=== PATIENT | female | born 1955 | race American Indian/Alaskan Native ===

== ENCOUNTER 2018-04-04 10:35 | Inpatient (IN) | payer OTHER ==
[2018-04-04] MEDS ORDERED: ASPIRIN PO ONE (11:05)
[2018-04-04 11:52] LABS: Basophils # (Auto) 0.1 K/mm3 (0.0-0.1); Basophils % (Auto) 0.8 % (0.0-1.8); Eosinophils # (Auto) 0.2 K/mm3 (0.0-0.4); Eosinophils % (Auto) 2.6 % (0.0-4.3); Hematocrit 42.2 % (30.3-42.9); Hemoglobin 13.6 gm/dl (10.1-14.3); Lymphocytes # (Auto) 2.5 K/mm3 (1.2-5.4); Mean Corpuscular HGB Conc 32 % (30-34); Mean Corpuscular Hemoglobin 29 pg (28-32); Mean Corpuscular Volume 90 fl (79-97); Monocytes # (Auto) 0.4 K/mm3 (0.0-0.8); Monocytes % (Auto) 4.9 % (0.0-7.3); Platelet Count 253 K/mm3 (140-440); Red Cell Distribution Width 13.3 % (13.2-15.2)
[2018-04-04 12:01] LABS: BUN/Creatinine Ratio 12; Blood Urea Nitrogen 6 mg/dL (7-17); Hemolysis Index 12
[2018-04-04 12:16] LABS: Calcium 12.2 mg/dL (8.4-10.2)
[2018-04-04] MEDS ORDERED: NITROSTAT SL ONE (14:00)
--- NOTE | 2018-04-04 14:04 | Emergency Department Report ---
ED Chest Pain HPI - General Chief Complaint: Chest Pain Stated Complaint: CHEST PAIN Time Seen by Provider: 04/04/18 13:53 Source: patient Mode of arrival: Wheelchair Limitations: No Limitations - History of Present Illness Initial Comments: Patient is 62 years old female with history of coronary artery disease, status post stent twice and high blood pressure. Patient presented with left-sided chest pain, pressure in nature radiating to her neck. Patient stated that her pain is better now. She denied any cough, shortness of breath or fever. MD Complaint: chest pain -: This morning Onset: during rest Pain Location: left chest Pain Radiation: neck Severity scale (0 -10): 5 Quality: heaviness, dull Consistency: constant - Related Data Allergies Allergy/AdvReac Type Severity Reaction Status Date / Time No Known Allergies Allergy Unverified 04/04/18 11:05 Heart Score - HEART Score History: Moderately suspicious EKG: Non-specific Age: 45-65 Risk factors: > 3 risk factors or hx of atherosclerotic disease Troponin: < normal limit HEART Score: 5 - Critical Actions Critical Actions: 4-6 pts:12-16.6% risk of adverse cardiac event. Should be admitted ED Review of Systems ROS: Stated complaint: CHEST PAIN Other details as noted in HPI Comment: All other systems reviewed and negative Constitutional: denies: chills, fever Respiratory: denies: cough, shortness of breath, SOB with exertion, SOB at rest , wheezing Cardiovascular: chest pain. denies: palpitations, dyspnea on exertion, orthopnea Gastrointestinal: denies: abdominal pain, nausea, vomiting, diarrhea, constipation, hematemesis, melena, hematochezia Genitourinary: denies: urgency, dysuria, frequency, hematuria Neurological: denies: headache, weakness, numbness ED Past Medical Hx - Past Medical History Previous Medical History?: Yes Hx Hypertension: Yes Additional medical history: Hx of bowel obstruction, cardiac stents. - Surgical History Past Surgical History?: Yes Additional Surgical History: Hx of bowel obs - Social History Smoking Status: Current Every Day Smoker Substance Use Type: None ED Physical Exam - General Limitations: No Limitations General appearance: alert, in no apparent distress - Head Head exam: Present: atraumatic, normocephalic, normal inspection - ENT ENT exam: Present: normal exam, normal orophraynx, mucous membranes moist - Neck Neck exam: Present: normal inspection, full ROM. Absent: tenderness, meningismus, lymphadenopathy, thyromegaly - Respiratory Respiratory exam: Present: normal lung sounds bilaterally. Absent: respiratory distress, wheezes, rales, rhonchi, stridor, chest wall tenderness, accessory muscle use, decreased breath sounds, prolonged expiratory - Cardiovascular Cardiovascular Exam: Present: regular rate, normal rhythm, normal heart sounds - GI/Abdominal GI/Abdominal exam: Present: soft, normal bowel sounds. Absent: distended, tenderness, guarding, rebound, rigid, organomegaly, mass, bruit, pulsatile mass , hernia - Extremities Exam Extremities exam: Present: normal inspection, full ROM, normal capillary refill - Back Exam Back exam: Present: normal inspection, full ROM. Absent: tenderness, CVA tenderness (R), CVA tenderness (L), muscle spasm, paraspinal tenderness, vertebral tenderness, rash noted - Neurological Exam Neurological exam: Present: alert, oriented X3, CN II-XII intact, normal gait, reflexes normal - Skin Skin exam: Present: warm, intact, normal color ED Course Vital Signs 04/04/18 04/04/18 04/04/18 10:36 15:06 15:07 Temperature 98.6 F Pulse Rate 69 62 62 Respiratory 16 15 Rate Blood Pressure 186/120 168/99 Blood Pressure 168/99 [Left] O2 Sat by Pulse 100 100 Oximetry 04/04/18 15:08 Temperature Pulse Rate 62 Respiratory Rate Blood Pressure Blood Pressure [Left] O2 Sat by Pulse Oximetry ED Medical Decision Making - Lab Data Result diagrams: 04/04/18 11:14 04/04/18 11:14 - EKG Data -: EKG Interpreted by Ia EKG shows normal: sinus rhythm Rate: normal - EKG Data Interpretation: no acute changes - Radiology Data Radiology results: image reviewed Chest x-ray is on unremarkable. - Medical Decision Making I discussed the patient is Dr. Robert, he agreed to admit to his service. Critical care attestation.: If time is entered above; I have spent that time in minutes in the direct care of this critically ill patient, excluding procedure time. ED Disposition Clinical Impression: Chest pain, Hypercalcemia Disposition: OP ADMIT IP TO THIS HOSP Is pt being admited?: Yes Condition: Stable Instructions: Chest Pain (ED) Referrals: RACHAEL DOLL MD [Primary Care Provider] - 3-5 Days
[2018-04-04] MEDS ORDERED: ASPIRIN ONE (14:38)
--- NOTE | 2018-04-04 15:12 | History and Physical Report ---
History of Present Illness Chief complaint: My chest hurts History of present illness: 62 YO Female with HTN, Malnutrition, CAD S/P Stent Placement, Nicotine Dependence presents to ED for evaluation. Pt states that she has experienced pain in her chest over the past 1-2 days with worsening symptoms over the past 8 hours. Pt states that pain is 5/10, constant, radiates to the left neck, crushing in nature, dull, not worsened with exertion, not relieved with rest. Pt denies fever, chills, palpitation, NVD, Diaphoresis, Shortness of Breath, Back pain, Unilateral leg swelling, calf pain, prolonged travel/immobility, individual/family history of DVT/PE, Productive cough, Hemoptysis, or recent ill contacts. Pt seen and evaluated in ED and found to have evidence of CHF, as well as ACS. Pt admitted to telemetry. Cardiology consulted in ED. Past History Past Medical History: CAD, hypertension Past Surgical History: Other (Stent Placement) Social history: , smoking Family history: hypertension Medications and Allergies Allergies Allergy/AdvReac Type Severity Reaction Status Date / Time No Known Allergies Allergy Unverified 04/04/18 11:05 Home Medications Medication Instructions Recorded Confirmed Last Taken Type No Known Home Medications [No 04/04/18 04/04/18 Unknown History Reported Home Medications] Review of Systems Constitutional: no weight loss, no weight gain, no fever, no chills Breasts: no change in shape, no swelling, no mass Cardiovascular: chest pain, no orthopnea, no palpitations, no syncope, no shortness of breath, no dyspnea on exertion, no paroxysmal nocturnal dyspnea Respiratory: no cough with sputum, no excessive sputum, no hemoptysis Gastrointestinal: no nausea, no vomiting, no diarrhea, no constipation Genitourinary Female: no pelvic pain, no flank pain, no menorrhagia, no dysuria , no urinary frequency, no urgency Rectal: no pain, no incontinence, no bleeding Musculoskeletal: no neck pain, no shooting arm pain, no arm numbness/tingling, no low back pain, no shooting leg pain, no leg numbness/tingling Integumentary: no rash, no pruritis, no redness, no sores, no wounds Neurological: no transient paralysis, no paralysis, no weakness, no parathesias , no numbness, no tingling Psychiatric: no memory loss, no change in sleep habits, no sleep disturbances, no insomnia, no hypersomnia Endocrine: no cold intolerance, no heat intolerance, no polyphagia, no excessive thirst, no polydipsia, no polyuria, no nocturia Hematologic/Lymphatic: no easy bruising, no easy bleeding, no lymphadenopathy, no lymphedema Allergic/Immunologic: no urticaria, no allergic rhinitis, no wheezing, no persistent infections Exam - Constitutional Vitals: Temp Pulse Resp BP Pulse Ox 98.6 F 62 15 168/99 100 04/04/18 10:36 04/04/18 15:08 04/04/18 15:07 04/04/18 15:07 04/04/18 15:07 General appearance: Present: mild distress, cachectic - EENT Eyes: Present: PERRL ENT: hearing intact, clear oral mucosa - Neck Neck: Present: supple, normal ROM - Respiratory Respiratory effort: normal Respiratory: bilateral: CTA - Cardiovascular Heart Sounds: Present: S1 & S2. Absent: rub, click - Extremities Extremities: pulses symmetrical, No edema Peripheral Pulses: within normal limits - Abdominal General gastrointestinal: Present: soft, non-tender, non-distended, normal bowel sounds Female genitourinary: Present: normal - Integumentary Integumentary: Present: clear, warm, dry - Musculoskeletal Musculoskeletal: gait normal, strength equal bilaterally - Psychiatric Psychiatric: appropriate mood/affect, intact judgment & insight - Neurologic Neurologic: CNII-XII intact, moves all extremities Results - Labs CBC & Chem 7: 04/04/18 17:22 04/04/18 17:39 Labs: Abnormal lab results 04/04/18 Range/Units 11:14 BUN 6 L (7-17) mg/dL Creatinine 0.5 L (0.7-1.2) mg/dL Calcium 12.2 H* (8.4-10.2) mg/dL Assessment and Plan - Patient Problems (1) ACS (acute coronary syndrome) Current Visit: Yes Status: Acute Plan to address problem: Admit to telemetry: Serial cardiac enzymes, ekg, echo, stress test, cardiology consulted, morphine, nitro, aspirin, (2) CHF (congestive heart failure) Current Visit: Yes Status: Acute Qualifiers: Heart failure type: diastolic Plan to address problem: Admit to telemetry, Strict I/O, Daily weight, afterload reduction, Echo, Cardiology consulted, supplemental oxygen, monitor uop q shift to assess fluid balance (3) HTN (hypertension) Current Visit: Yes Status: Acute Qualifiers: Hypertension type: essential hypertension Qualified Code(s): I10 - Essential (primary) hypertension Plan to address problem: monitor bp q shift, resume prehospital therapy (4) Nicotine dependence Current Visit: Yes Status: Acute Qualifiers: Nicotine product type: cigarettes Substance use status: in withdrawal Qualified Code(s): F17.213 - Nicotine dependence, cigarettes, with withdrawal Plan to address problem: supportive care, smoking cessation counseling, (5) DVT prophylaxis Current Visit: Yes Status: Acute Plan to address problem: scd to ble while in bed.
[2018-04-04] MEDS ORDERED: SODIUM CHLORIDE FLUSH SYRINGE 10 ML IV PRN ×2 (15:15)
[2018-04-04] MEDS ORDERED: TYLENOL PO PRN (15:15)
[2018-04-04] MEDS ORDERED: PROVENTIL IH PRN (15:15)
[2018-04-04] MEDS ORDERED: BABY ASPIRIN PO STA (15:15)
[2018-04-04] MEDS ORDERED: ZOFRAN IV PRN (15:15)
[2018-04-04] MEDS ORDERED: APRESOLINE IV PRN (15:20)
[2018-04-04] MEDS ORDERED: NACL 0.9% 1000 ML 1,000 ML IV ONE (15:25)
[2018-04-04 18:05] LABS: Hematocrit 41.3 % (30.3-42.9); Hemoglobin 13.1 gm/dl (10.1-14.3); Mean Corpuscular HGB Conc 32 % (30-34); Mean Corpuscular Hemoglobin 29 pg (28-32); Mean Corpuscular Volume 91 fl (79-97); Platelet Count 259 K/mm3 (140-440); Red Blood Count 4.55 M/mm3 (3.65-5.03); Red Cell Distribution Width 13.3 % (13.2-15.2)
[2018-04-04 18:17] LABS: BUN/Creatinine Ratio 10; Blood Urea Nitrogen 6 mg/dL (7-17); Hemolysis Index 1
[2018-04-04 19:07] LABS: Total Cells Counted 100
[2018-04-04 19:08] LABS: Ovalocytes Few
[2018-04-05] MEDS: SODIUM CHLORIDE FLUSH SYRINGE 10 ML IV SCH ×3 (07:19→21:57)
[2018-04-05] MEDS ORDERED: LEXISCAN IV ONE ×2 (08:16→08:37)
--- NOTE | 2018-04-05 12:10 | Progress Note ---
Assessment and Plan Assessment and plan: Patient is a 62 YO Female with HTN, Malnutrition, CAD S/P Stent Placement, Nicotine Dependence presents to ED for evaluation. Pt states that she has experienced pain in her chest over the past 1-2 days with worsening symptoms over the past 8 hours. Pt states that pain is 5/10, constant, radiates to the left neck, crushing in nature, dull, not worsened with exertion, not relieved with rest. Pt denies fever, chills, palpitation, NVD, Diaphoresis, Shortness of Breath, Back pain, Unilateral leg swelling, calf pain, prolonged travel/ immobility, individual/family history of DVT/PE, Productive cough, Hemoptysis, or recent ill contacts. Patient reports prior evaluation by Primary care doctor and noted to have a Calcium of 12. also TSH Was checked and was 0.5. she was advised to see psychiatry that this may all be due to anxiety. 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 Recheck calcium level in am Reinforce tobacco cessation counselling check PTH, FREE T4, TSH Pain control dvt/gi prophy History Interval history: Patient seen and examined in no acute distress. reports mirage of symptoms from palpitations, to head pain Hospitalist Physical - Physical exam Narrative exam: VITAL SIGNS: Reviewed. GENERAL: The patient appeared cachectic. Vital signs as documented. HEAD: No signs of head trauma. EYES: Pupils are equal. Extraocular motions intact. EARS: Hearing grossly intact. MOUTH: Oropharynx is normal. NECK: No adenopathy, no JVD. CHEST: Chest with clear breath sounds bilaterally. No wheezes, rales, or rhonchi. CARDIAC: Regular rate and rhythm. S1 and S2, without murmurs, gallops, or rubs. VASCULAR: No Edema. Peripheral pulses normal and equal in all extremities. ABDOMEN: Soft, without detectable tenderness. No sign of distention. No rebound or guarding, and no masses palpated. Bowel Sounds normal. MUSCULOSKELETAL: Good range of motion of all major joints. Extremities without clubbing, cyanosis or edema. NEUROLOGIC EXAM: Alert and oriented x 3. No focal sensory or strength deficits. Speech normal. Follows commands. PSYCHIATRIC: Mood normal. SKIN: No rash or lesions. - Constitutional Vitals: Temp Pulse Resp BP Pulse Ox 98.7 F 72 18 149/85 100 04/05/18 07:46 04/05/18 10:39 04/05/18 07:46 04/05/18 10:39 04/05/18 07:46 General appearance: Present: mild distress, cachectic Results - Labs CBC & Chem 7: 04/04/18 17:22 04/06/18 07:20 Labs: Laboratory Last Values WBC 8.1 K/mm3 (4.5-11.0) 04/04/18 17:22 RBC 4.55 M/mm3 (3.65-5.03) 04/04/18 17:22 Hgb 13.1 gm/dl (10.1-14.3) 04/04/18 17:22 Hct 41.3 % (30.3-42.9) 04/04/18 17:22 MCV 91 fl (79-97) 04/04/18 17:22 MCH 29 pg (28-32) 04/04/18 17:22 MCHC 32 % (30-34) 04/04/18 17:22 RDW 13.3 % (13.2-15.2) 04/04/18 17:22 Plt Count 259 K/mm3 (140-440) 04/04/18 17:22 Lymph % (Auto) 33.0 % (13.4-35.0) 04/04/18 11:14 Frontier % (Auto) 4.9 % (0.0-7.3) 04/04/18 11:14 Eos % (Auto) 2.6 % (0.0-4.3) 04/04/18 11:14 Baso % (Auto) 0.8 % (0.0-1.8) 04/04/18 11:14 Lymph # 2.5 K/mm3 (1.2-5.4) 04/04/18 11:14 Frontier # 0.4 K/mm3 (0.0-0.8) 04/04/18 11:14 Eos # 0.2 K/mm3 (0.0-0.4) 04/04/18 11:14 Baso # 0.1 K/mm3 (0.0-0.1) 04/04/18 11:14 Add Manual Diff Complete 04/04/18 17:22 Total Counted 100 04/04/18 17:22 Seg Neutrophils % 58.7 % (40.0-70.0) 04/04/18 11:14 Seg Neuts % (Manual) 48.0 % (40.0-70.0) 04/04/18 17:22 Band Neutrophils % 0 % 04/04/18 17:22 Lymphocytes % (Manual) 40.0 % (13.4-35.0) H 04/04/18 17:22 Reactive Lymphs % (Man) 0 % 04/04/18 17:22 Monocytes % (Manual) 8.0 % (0.0-7.3) H 04/04/18 17:22 Eosinophils % (Manual) 3.0 % (0.0-4.3) 04/04/18 17:22 Basophils % (Manual) 1.0 % (0.0-1.8) 04/04/18 17:22 Metamyelocytes % 0 % 04/04/18 17:22 Myelocytes % 0 % 04/04/18 17:22 Promyelocytes % 0 % 04/04/18 17:22 Blast Cells % 0 % 04/04/18 17:22 Nucleated RBC % Not Reportable 04/04/18 17:22 Seg Neutrophils # 4.4 K/mm3 (1.8-7.7) 04/04/18 11:14 Seg Neutrophils # Man 3.9 K/mm3 (1.8-7.7) 04/04/18 17:22 Band Neutrophils # 0.0 K/mm3 04/04/18 17:22 Lymphocytes # (Manual) 3.2 K/mm3 (1.2-5.4) 04/04/18 17:22 Abs React Lymphs (Man) 0.0 K/mm3 04/04/18 17:22 Monocytes # (Manual) 0.6 K/mm3 (0.0-0.8) 04/04/18 17:22 Eosinophils # (Manual) 0.2 K/mm3 (0.0-0.4) 04/04/18 17:22 Basophils # (Manual) 0.1 K/mm3 (0.0-0.1) 04/04/18 17:22 Metamyelocytes # 0.0 K/mm3 04/04/18 17:22 Myelocytes # 0.0 K/mm3 04/04/18 17:22 Promyelocytes # 0.0 K/mm3 04/04/18 17:22 Blast Cells # 0.0 K/mm3 04/04/18 17:22 WBC Morphology Not Reportable 04/04/18 17:22 Hypersegmented Neuts Not Reportable 04/04/18 17:22 Hyposegmented Neuts Not Reportable 04/04/18 17:22 Hypogranular Neuts Not Reportable 04/04/18 17:22 Smudge Cells Not Reportable 04/04/18 17:22 Toxic Granulation Not Reportable 04/04/18 17:22 Toxic Vacuolation Not Reportable 04/04/18 17:22 Dohle Bodies Not Reportable 04/04/18 17:22 Pelger-Huet Anomaly Not Reportable 04/04/18 17:22 U[place]ano Rods Not Reportable 04/04/18 17:22 Platelet Estimate Appears normal 04/04/18 17:22 Clumped Platelets Not Reportable 04/04/18 17:22 Plt Clumps, EDTA Not Reportable 04/04/18 17:22 Large Platelets Not Reportable 04/04/18 17:22 Giant Platelets Not Reportable 04/04/18 17:22 Platelet Satelliting Not Reportable 04/04/18 17:22 Plt Morphology Comment Not Reportable 04/04/18 17:22 RBC Morphology Not Reportable 04/04/18 17:22 Dimorphic RBCs Not Reportable 04/04/18 17:22 Polychromasia Not Reportable 04/04/18 17:22 Hypochromasia Not Reportable 04/04/18 17:22 Poikilocytosis Not Reportable 04/04/18 17:22 Anisocytosis Not Reportable 04/04/18 17:22 Microcytosis Not Reportable 04/04/18 17:22 Macrocytosis Not Reportable 04/04/18 17:22 Spherocytes Not Reportable 04/04/18 17:22 Pappenheimer Bodies Not Reportable 04/04/18 17:22 Sickle Cells Not Reportable 04/04/18 17:22 Target Cells Not Reportable 04/04/18 17:22 Tear Drop Cells Not Reportable 04/04/18 17:22 Ovalocytes Few 04/04/18 17:22 Helmet Cells Not Reportable 04/04/18 17:22 [place] Bodies Not Reportable 04/04/18 17:22 [place] Rings Not Reportable 04/04/18 17:22 Noe Cells Not Reportable 04/04/18 17:22 Bite Cells Not Reportable 04/04/18 17:22 Crenated Cell Not Reportable 04/04/18 17:22 Elliptocytes Not Reportable 04/04/18 17:22 Acanthocytes (Spur) Not Reportable 04/04/18 17:22 Rouleaux Not Reportable 04/04/18 17:22 Hemoglobin C Crystals Not Reportable 04/04/18 17:22 Schistocytes Not Reportable 04/04/18 17:22 Malaria parasites Not Reportable 04/04/18 17:22 Davi Bodies Not Reportable 04/04/18 17:22 Hem Pathologist Commnt No 04/04/18 17:22 D-Dimer 172.12 ng/mlDDU (0-234) 04/04/18 17:38 Sodium 144 mmol/L (137-145) 04/04/18 17:39 Potassium 4.4 mmol/L (3.6-5.0) 04/04/18 17:39 Chloride 102.9 mmol/L (98-107) 04/04/18 17:39 Carbon Dioxide 30 mmol/L (22-30) 04/04/18 17:39 Anion Gap 16 mmol/L 04/04/18 17:39 BUN 6 mg/dL (7-17) L 04/04/18 17:39 Creatinine 0.6 mg/dL (0.7-1.2) L 04/04/18 17:39 Estimated GFR > 60 ml/min 04/04/18 17:39 BUN/Creatinine Ratio 10 % 04/04/18 17:39 Glucose 85 mg/dL (65-100) 04/04/18 17:39 Calcium 12.0 mg/dL (8.4-10.2) H 04/04/18 17:39 Troponin T < 0.010 ng/mL (0.00-0.029) 04/04/18 20:00 NT-Pro-B Natriuret Pep 146.1 pg/mL (0-900) 04/04/18 17:39 - Imaging and Cardiology Chest x-ray: image reviewed (clear)
[2018-04-05] MEDS: NACL 0.9% 1000 ML 1,000 ML IV SCH ×2 (14:35→21:56)
--- NOTE | 2018-04-05 18:04 | Consultation ---
History of Present Illness Consult date: 04/05/18 Consult reason: chest pain History of present illness: Patient's this 62-year-old woman was admitted with atypical chest pain, ECG and cardiac enzymes were benign, she underwent a Persantine thallium stress test which was normal. Echocardiogram was normal left ventricle systolic function, ejection fraction 60-65%. She gives a history of coronary artery disease with remote coronary stenting, but unclear about details of her prior cardiac workup. She at this time does not follow-up regularly with a adobe developer. She also appears not to be on routine cardiac anti-ischemic medications. Past History Past Medical History: CAD, hypertension Past Surgical History: Other (Stent Placement) Social history: , smoking Family history: hypertension Medications and Allergies Allergies Allergy/AdvReac Type Severity Reaction Status Date / Time No Known Allergies Allergy Unverified 04/04/18 11:05 Home Medications Medication Instructions Recorded Confirmed Last Taken Type No Known Home Medications [No 04/04/18 04/04/18 Unknown History Reported Home Medications] Active Meds: Active Medications Acetaminophen (Tylenol) 650 mg PO Q4H PRN PRN Reason: Pain MILD(1-3)/Fever >100.5/CARR Last Admin: 04/04/18 21:40 Dose: 650 mg Albuterol (Proventil) 2.5 mg IH Q4HRT PRN PRN Reason: Shortness Of Breath Hydralazine HCl (Apresoline) 10 mg IV Q4H PRN PRN Reason: Hypertension, systolic >160 Sodium Chloride (Nacl 0.9% 1000 Ml) 1,000 mls @ 150 mls/hr IV DIRECT [facility] Last Admin: 04/05/18 14:35 Dose: 150 mls/hr Ondansetron HCl (Zofran) 4 mg IV Q8H PRN PRN Reason: Nausea And Vomiting Sodium Chloride (Sodium Chloride Flush Syringe 10 Ml) 10 ml IV BID [facility] Last Admin: 04/05/18 15:32 Dose: Not Given Sodium Chloride (Sodium Chloride Flush Syringe 10 Ml) 10 ml IV PRN PRN PRN Reason: LINE FLUSH Sodium Chloride (Sodium Chloride Flush Syringe 10 Ml) 10 ml IV PRN PRN PRN Reason: LINE FLUSH Review of Systems Cardiovascular: chest pain, no orthopnea, no palpitations, no rapid/irregular heart beat, no edema, no syncope, no lightheadedness, no shortness of breath Physical Examination Vital Signs Temp Pulse Resp BP Pulse Ox 98.6 F 69 16 186/120 100 04/04/18 10:36 04/04/18 10:36 04/04/18 10:36 04/04/18 10:36 04/04/18 10:36 General appearance: no acute distress HEENT: Positive: PERRL Neck: Positive: neck supple Cardiac: Positive: Reg Rate and Rhythm Lungs: Positive: Decreased Breath Sounds Neuro: Positive: Grossly Intact Abdomen: Positive: Soft Female genitourinary: deferred Skin: Positive: Clear Extremities: Absent: edema Results 04/04/18 17:22 04/06/18 07:20 CBC 04/04/18 Range/Units 17:22 WBC 8.1 (4.5-11.0) K/mm3 RBC 4.55 (3.65-5.03) M/mm3 Hgb 13.1 (10.1-14.3) gm/dl Hct 41.3 (30.3-42.9) % Plt Count 259 (140-440) K/mm3 Comprehensive Metabolic Panel 04/04/18 Range/Units 17:39 Sodium 144 (137-145) mmol/L Potassium 4.4 (3.6-5.0) mmol/L Chloride 102.9 (98-107) mmol/L Carbon Dioxide 30 (22-30) mmol/L BUN 6 L (7-17) mg/dL Creatinine 0.6 L (0.7-1.2) mg/dL Glucose 85 (65-100) mg/dL Calcium 12.0 H (8.4-10.2) mg/dL EKG interpretations - Telemetry EKG Rhythm: Sinus Rhythm Assessment and Plan - Patient Problems (1) Chest pain Status: Acute Plan to address problem: Patient was admitted with atypical chest pain, cardiac workup is negative with negative EKG, negative cardiac enzymes, negative thallium stress test and echocardiogram with ejection fraction 60-65%. She has a history of coronary artery disease and we recommend obtaining her old records for review. Maintain routine outpatient cardiology follow-up, with resumption of optimal coronary artery disease and cardiac ischemic medical therapy.
--- NOTE | 2018-04-06 03:10 | Treadmill Report ---
THALLIUM STRESS TEST REPORT LEFT VENTRICLE: Left ventricular chamber size is within normal spread. Perfusion study demonstrates homogeneous uptake of the tracer in all segments, no significant perfusion defects identified. Gated analysis demonstrates normal left ventricular systolic function, ejection fraction greater than 70%. CONCLUSION: Normal myocardial perfusion study. JOB# [id number] CA/NTS
[2018-04-06] MEDS: NACL 0.9% 1000 ML 1,000 ML IV SCH (04:35)
[2018-04-06 05:24] VITALS: BP 148/89
[2018-04-06 08:07] LABS: BUN/Creatinine Ratio 10; Blood Urea Nitrogen 5 mg/dL (7-17); Calcium 11.5 mg/dL (8.4-10.2); Hemolysis Index 15
[2018-04-06] MEDS: SODIUM CHLORIDE FLUSH SYRINGE 10 ML IV SCH (10:08)
--- NOTE | 2018-04-06 11:34 | Discharge Summary ---
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 Pt states that she has experienced pain in her chest over the past 1-2 days with worsening symptoms over the past 8 hours. Pt states that pain is 5/10, constant, radiates to the left neck, crushing in nature, dull, not worsened with exertion, not relieved with rest. Pt denies fever, chills, palpitation, NVD, Diaphoresis, Shortness of Breath, Back pain, Unilateral leg swelling, calf pain, prolonged travel/ immobility, individual/family history of DVT/PE, Productive cough, Hemoptysis, or recent ill contacts. Patient reports prior evaluation by Primary care doctor and noted to have a Calcium of 12. also TSH Was checked and was 0.5. she was advised to see psychiatry that this may all be due to anxiety. 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
--- NOTE | 2018-04-06 12:27 | Progress Note ---
Assessment and Plan Chest pain, atypical normal MPI EF 60-65% by echo No further cardiac workup indicated. Conservative cardiac management. Subjective Date of service: 04/06/18 Interval history: There are no cardiac complaints. Objective Vital Signs Temp Pulse Pulse Resp BP BP Pulse Ox 04/06/18 10:00 18 04/06/18 04:43 98.4 F 63 18 148/89 100 04/06/18 03:33 55 L 04/05/18 23:25 98.3 F 66 18 145/82 100 04/05/18 22:27 62 04/05/18 21:11 72 18 99 04/05/18 20:05 100 04/05/18 19:32 98.0 F 64 18 154/93 100 04/05/18 19:29 66 154/93 100 04/05/18 17:00 98.3 F 69 18 158/101 98 - Physical Examination General: No Apparent Distress Cardiac: Positive: Reg Rate and Rhythm - Labs and Meds Comprehensive Metabolic Panel 04/06/18 Range/Units 07:20 Sodium 145 (137-145) mmol/L Potassium 4.2 (3.6-5.0) mmol/L Chloride 107.8 H (98-107) mmol/L Carbon Dioxide 23 D (22-30) mmol/L BUN 5 L (7-17) mg/dL Creatinine 0.5 L (0.7-1.2) mg/dL Glucose 88 (65-100) mg/dL Calcium 11.5 H (8.4-10.2) mg/dL
--- NOTE | 2018-04-06 14:26 | XRay Report ---
FINAL REPORT EXAM: XR CHEST 1V AP HISTORY: chest pain TECHNIQUE: Frontal portable examination of the chest PRIORS: None FINDINGS: Thoracic spine curvature with mid right apex. Atherosclerotic change is present in the thoracic aorta. There is degenerative spondylosis of the thoracic spine. There is no visible pulmonary consolidation, pleural effusion, or pneumothorax. Cardiac silhouette size is normal without vascular congestion. Large lung volumes suggest hyperinflation. This may reflect pulmonary emphysema. No definite acute cardiopulmonary disease. Nonspecific 6 mm smoothly marginated nodular opacity is noted in the left upper lobe region coinciding with posterior left 4th rib. This may be a bone island. Similar density noted in proximal humerus region may also be a bone island. IMPRESSION: Posterior left 4th rib bone island versus left upper lobe pulmonary nodule. Recommend followup chest CT to further characterize
--- NOTE | 2018-04-06 14:30 | Cat Scan Report ---
FINAL REPORT PROCEDURE: CT HEAD/BRAIN WO CON TECHNIQUE: Computerized tomography of the head was performed without contrast material. HISTORY: intermittent amensia, hypercalcemia COMPARISON: No prior studies are available for comparison. FINDINGS: No intracranial mass, hemorrhage, acute territorial infarction, or hydrocephalus. The intracranial arteries are symmetric in density. Calvarium is intact. The visualized paranasal sinuses and mastoids are aerated. IMPRESSION: No CT evidence of acute intracranial abnormality
== END 2018-04-06 12:45 | disposition home or self-care (01) | DRG 304 ==
LOC: ED 10:35 → 4A 15:15
PROVIDERS: ADMIT Internal Medicine; ATTEND Internal Medicine
DX: I16.0 Hypertensive urgency (principal); E43 Unspecified severe protein-calorie malnutrition; I24.9 Acute ischemic heart disease, unspecified; R64 Cachexia; Z68.1 Body mass index [BMI] 19.9 or less, adult; F17.213 Nicotine dependence, cigarettes, with withdrawal; I50.30 Unspecified diastolic (congestive) heart failure; I25.10 Atherosclerotic heart disease of native coronary artery without angina pectoris; I11.0 Hypertensive heart disease with heart failure; R41.3 Other amnesia; E05.90 Thyrotoxicosis, unspecified without thyrotoxic crisis or storm; R07.89 Other chest pain; E83.52 Hypercalcemia; Z82.49 Family history of ischemic heart disease and other diseases of the circulatory system; Z95.5 Presence of coronary angioplasty implant and graft
CPT/HCPCS: 36415; 70450; 71045; 78452; 80048; 82330; 83880; 83970; 84484; 85007; 85025; 85379; 93005; 93010; 93017; 93306; 99285; 99406; A9502; J2785; J7030

== ENCOUNTER 2019-12-10 09:53 | Outpatient (CLI) | payer BC ==
[2019-12-10] MEDS ORDERED: LIDOCAINE (4%) 40 MG/ML TOPICAL SOLN 50 ML BOTTLE TP ONE (10:12)
[2019-12-10] MEDS ORDERED: LIDOCAINE 1%/EPINEPHRINE 1:100,000 VIAL (20 ML) INFILTRATI ONE (11:30)
[2019-12-10] MEDS ORDERED: LIDOCAINE (1%) 10 MG/1 ML VIAL 20 ML MDV INFILTRATI ONE (11:30)
== END 2019-12-10 09:54 | disposition home or self-care (01) ==
LOC: WOUND 09:53
PROVIDERS: ATTEND Surgery
DX: L02.212 Cutaneous abscess of back [any part, except buttock and flank] (principal); I10 Essential (primary) hypertension; I25.10 Atherosclerotic heart disease of native coronary artery without angina pectoris; F17.200 Nicotine dependence, unspecified, uncomplicated; Z90.710 Acquired absence of both cervix and uterus
CPT/HCPCS: 10060; 87116; G0463; 99204; 99214

== ENCOUNTER 2019-12-28 11:08 | Day surgery (SDC) | payer BC ==
[~2019-12-28 11:08] MED LIST: ceFAZolin/Water 2 GM/20 ML 2 GM/20 ML SYRINGE IV SCH
[2019-12-28] MEDS ORDERED: fentaNYL 100 MCG/2 ML INJ IV PRN (12:18)
--- NOTE | 2019-12-28 12:22 | Anesthesia Day of Surgery ---
Anesthesia Day of Surgery - Day of Surgery Patient Examined: Yes Patient H&P Reviewed: Yes Patient is NPO: Yes Beta Blockers: Yes
--- NOTE | 2019-12-28 12:22 | Anesthesia Consultation ---
Anesthesia Consult and Med Hx Date of service: 12/28/19 - Airway Anesthetic Teeth Evaluation: Dentures ROM Head & Neck: Adequate Mental/Hyoid Distance: Adequate Mallampati Class: Class III Intubation Access Assessment: Possibly Difficult - Pulmonary Exam CTA: Yes - Cardiac Exam Cardiac Exam: RRR - Pre-Operative Health Status ASA Pre-Surgery Classification: ASA3 Proposed Anesthetic Plan: MAC - Pulmonary Hx Smoking: Yes (2-3 cigs/day) Hx Respiratory Symptoms: No Hx Sleep Apnea: No (RANCHO PRE SCREEN HIGH RISK.) - Cardiovascular System Hx Hypertension: Yes (took losartan and metoprolol this morning) Hx Coronary Artery Disease: Yes ([facility] 11/2019: moderate instent stenosis; med management) Hx Percutaneous Transluminal Coronary Angioplasty (PTCA): Yes (x2 2004) Hx Cardia Arrhythmia: No - Central Nervous System CVA: No - Gastrointestinal Hx Gastroesophageal Reflux Disease: No - Endocrine Hx Renal Disease: No Hx Liver Disease: No Hx Insulin Dependent Diabetes: No Hx Non-Insulin Dependent Diabetes: No Hx Thyroid Disease: No - Other Systems Hx Substance Use: Yes (THC) Hx Obesity: No - Additional Comments Anesthesia Medical History Comments: No hx anesthetic complications. Admitted in 11/2019 for chest pain. Neg stress test and LHC showing moderate re-stenosis but no intervention.
[2019-12-28] MEDS ORDERED: LACTATED RINGERS 1,000 ML IV SCH (13:00)
[2019-12-28] MEDS ORDERED: MIDAZOLAM 2 MG/2 ML INJ IV NR (13:00)
[2019-12-28] MEDS ORDERED: LIDOCAINE (1%) 10 MG/1 ML VIAL 20 ML MDV ONE (13:24)
[2019-12-28] MEDS ORDERED: BUPIVACAINE/PF (0.25%) 2.5 MG/ML 30 ML VIAL INFILTRATI ONE ×2 (13:24→14:07)
[2019-12-28] MEDS ORDERED: propofoL 200 MG/20 ML VIAL IV ONE (13:28)
[2019-12-28] MEDS ORDERED: fentaNYL 100 MCG/2 ML INJ ONE (13:28)
[2019-12-28] MEDS ORDERED: KETAMINE/STERILE WATER 50 MG/ML SYRINGE ONE (13:50)
[2019-12-28] MEDS ORDERED: MIDAZOLAM 2 MG/2 ML INJ ONE (13:50)
[2019-12-28] MEDS ORDERED: LIDOCAINE (1%) 10 MG/1 ML VIAL 20 ML MDV INFILTRATI ONE (14:07)
[2019-12-28] MEDS ORDERED: SODIUM CHLORIDE 0.9% IRR 1,500 ML BOTTLE IR ONE (14:08)
[2019-12-28] MEDS ORDERED: BACITRACIN ZINC OINT 28.4 GM TP ONE ×2 (14:18→14:22)
--- NOTE | 2019-12-28 14:37 | Short Stay Summary ---
Short Stay Documentation Date of service: 12/28/19 - History Principal diagnosis: cyst of left upper back H&P: obtained from office - Allergies and Medications Current Medications: Allergies No Known Allergies Allergy (Unverified 04/04/18 11:05) Home Medications Medication Instructions Recorded Confirmed Last Taken Type Nitroglycerin [Nitrostat] 0.4 mg SL PRN PRN 11/05/19 12/28/19 12/10/19 History Aspirin [Aspirin BABY CHEW TAB] 81 mg PO QDAY #30 tab.chew 11/08/19 12/27/19 12/27/19 Rx Losartan/Hydrochlorothiazide 50 mg PO DAILY #30 11/08/19 12/28/19 12/28/19 09:00 Rx [Losartan-Hctz 50-12.5 mg Tab] Metoprolol [Lopressor TAB] 25 mg PO BID #60 tablet 11/08/19 12/28/19 12/28/19 09:00 Rx ISOSORBIDE MONOnitrate [Imdur ER] 60 mg PO QDAY 12/27/19 12/28/19 12/27/19 History Active Medications Fentanyl (Sublimaze) 50 mcg IV Q5MIN PRN PRN Reason: Pain , Severe (7-10) Cefazolin Sodium (Ancef/Sterile Water 2 Gm/20 Ml) 2 gm in 20 mls @ 40 mls/hr IV PREOP MADONNA; Protocol Stop: 12/28/19 23:01 Lactated Ringer's (Lactated Ringers) 1,000 mls @ 100 mls/hr IV DIRECT MADONNA Last Admin: 12/28/19 12:45 Dose: 100 mls/hr Documented by: Midazolam HCl (Versed) 2 mg IV PREOP NR Stop: 12/28/19 23:59 Last Admin: 12/28/19 13:13 Dose: 2 mg Documented by: - Brief post op/procedure progress note Date of procedure: 12/28/19 Pre-op diagnosis: cyst of left upper back Post-op diagnosis: same Procedure: excision cyst of left upper back Anesthesia: MAC, local Findings: 3 cm cyst of left upper back Surgeon: BRIGITTE CABEZAS Estimated blood loss: minimal Pathology: list (cyst of left upper back) Specimen disposition: to lab Condition: stable - Hospital course Hospital course: Pt observed in PACU and discharged to home in stable condition when criteria met - Disposition Condition at discharge: Good Disposition: DC-01 TO HOME OR SELFCARE Short Stay Discharge Plan Activity: no restrictions Diet: regular Wound: open to air, per your surgeon's advice Additional Instructions: SEE PRINTED DISCHARGE INSTRUCTIONS Follow up with: INO QUEVEDO MD [Primary Care Provider] - 7 Days BRIGITTE CABEZAS DO [Staff Physician] - 14 Days Prescriptions: HYDROcodone/APAP 5-325 [Henderson 5/325] 1 each PO Q6HR PRN #20 tablet PRN Reason: Pain , Severe (7-10)
[2019-12-28] MEDS ORDERED: hydrALAZINE 20 MG/1 ML INJ ONE (14:58)
[2019-12-28] MEDS ORDERED: hydrALAZINE 20 MG/1 ML INJ IV PRN (14:59)
[2019-12-28 15:19] VITALS: BP 146/80
[2019-12-28] MEDS ORDERED: KETOROLAC 30 MG/1 ML INJ ONE (20:41)
--- NOTE | 2019-12-28 20:46 | Post Anesthesia Evaluation ---
- Post Anesthesia Evaluation Patient Participated: Yes Airway Patent: Yes Stable Respiratory Function: Yes Nausea/Vomiting: No Temp > 96.8F: Yes Pain Manageable: Yes Adequeate Hydration: Yes Anesthesia Complications: No Block Receding Appropriately: Not Applicable Patient on Ventilator: No
--- NOTE | 2019-12-28 22:07 | Operative Report ---
Operative Report Operative Report: Date of procedure: 12/28/19 Pre-op diagnosis: cyst of left upper back Post-op diagnosis: same Procedure: excision cyst of left upper back Anesthesia: MAC, local Findings: 3 cm cyst of left upper back Surgeon: BRIGITTE CABEZAS Estimated blood loss: minimal Pathology: list (cyst of left upper back) Specimen disposition: to lab Condition: stable Hospital course: Pt observed in PACU and discharged to home in stable condition when criteria met HPI and indication: 64-year-old female who was seen in the office for evaluation of a left upper back cyst. The cyst had slowly grown over time and developed cellulitis. She was treated with a course of antibiotics and an incision and drainage procedure and the infection resolved. It was recommended that the cyst be excised. All risks, benefits, alternatives to surgery were discussed with the patient questions answered. Consent obtained. Procedure in detail: The patient was identified in the preoperative area, taken back to the operating room, placed on operating room table in left lateral decubitus position. After anesthesia was induced the left upper back was prepped and draped in usual sterile fashion and a timeout performed. Local anesthetic was infiltrated into the skin at the intended incision site. A vertical elliptical incision was made using a 15 blade in order to accommodate the openings in the skin affected by the cyst. Dissection was carried down through the skin and subcutaneous tissue using electrocautery until the cyst was encountered. The cyst was adhered to the surrounding skin. The cyst was dissected free from the surrounding tissue using a combination of sharp dissection with iris scissors, electrocautery, and blunt dissection. Once the cyst was circumferentially dissected it was removed from the wound and measured. The cyst measured approximately 3 cm. This was passed off the table as a specimen. The wound was then irrigated and checked for hemostasis. Hemostasis was achieved using electrocautery and pressure. Once hemostasis was ensured skin flaps were created in order to facilitate wound closure. The edges of the incision were closed with simple interrupted 2-0 nylon sutures. The middle portion of the wound was closed with several vertical mattress 2-0 nylon sutures. The skin was cleansed with saline and bacitracin applied to the incision. The incision was then covered with a 4 x 4 fluff gauze and Tegaderm. At the end of the case, all sponge, instrument, sharp counts were correct x2. The patient was awoken from anesthesia and taken to PACU in stable condition.
== END 2019-12-28 16:26 | disposition home or self-care (01) ==
LOC: OR 11:08
PROVIDERS: ATTEND Surgery
DX: R22.2 Localized swelling, mass and lump, trunk (principal); L72.0 Epidermal cyst; I11.0 Hypertensive heart disease with heart failure; I50.9 Heart failure, unspecified; I25.110 Atherosclerotic heart disease of native coronary artery with unstable angina pectoris; F17.210 Nicotine dependence, cigarettes, uncomplicated; Z95.5 Presence of coronary angioplasty implant and graft; Z90.710 Acquired absence of both cervix and uterus; Z79.899 Other long term (current) drug therapy; Z79.82 Long term (current) use of aspirin; Z98.890 Other specified postprocedural states
CPT/HCPCS: 11404; 88304; J0360; J0690; J1885; J2250; J2704; J3010; J7120